=== PATIENT | male | born 1955 | race Caucasian/White ===

== ENCOUNTER 2025-02-03 11:47 | Inpatient (IN) | payer MEDICARE ==
[~2025-02-03] VITALS: Ht 198.1 cm; Wt 83.5 kg
[2025-02-03 12:39] LABS: PLATELET COUNT (AUTO) 141 K/uL (150-450); RED BLOOD CELL COUNT(AUTO) 3.95 MIL/uL (4.5-6.0); RED CELL DISTRIBUTION WIDTH 13.2 % (11.5-15.0); WHITE BLOOD COUNT (AUTO) 6.8 K/uL (4.3-11.0)
[2025-02-03 12:52] LABS: INR 1.05 (0.91-1.10)
[2025-02-03] MEDS: IV NS 0.9% 1,000 ML BAG IV ONE (12:54)
[2025-02-03 12:58] LABS: LACTIC ACID 2.2 mmol/L (0.4-2.0)
[2025-02-03 13:02] LABS: CALCIUM, SERUM 8.8 mg/dL (8.5-10.1); CREATININE 1.2 mg/dL (0.6-1.3); SODIUM SERUM 136 mmol/L (136-145); UREA NITROGEN, BLOOD 26 mg/dL (7-18)
[2025-02-03 13:06] LABS: ASPARTATE AMINOTRANSFERASE 10 U/L (15-37); TOTAL PROTEIN, SERUM 6.3 g/dL (6.4-8.2)
[2025-02-03] MEDS ORDERED: DUTA0.5C37 PO (13:20)
[2025-02-03] MEDS ORDERED: QUET300T2 PO (13:20)
[2025-02-03] MEDS ORDERED: DIVA-78 PO (13:20)
[2025-02-03] MEDS ORDERED: RAMI10CA69 PO (13:20)
[2025-02-03] MEDS ORDERED: TRAZ-257 PO (13:20)
[2025-02-03] MEDS ORDERED: ASPIRIN 81 MG TAB.CHEW ONE (13:35)
[2025-02-03] MEDS ORDERED: ENOXAPARIN SODIUM 80 MG/0.8 ML DISP.SYRIN SQ ONE (13:35)
[2025-02-03] MEDS: ASPIRIN 81 MG TAB.CHEW PO ONE (13:40)
[2025-02-03] MEDS: ENOXAPARIN SODIUM 80 MG/0.8 ML DISP.SYRIN SQ SCH (15:00)
[2025-02-03 15:29] LABS: APPEARANCE,URINE CLEAR (CLEAR); BLOOD, URINE NEGATIVE Ery/uL (NEGATIVE); LEUKOCYTE ESTERASE ,URINE NEGATIVE (NEGATIVE); NITRITE, URINE NEGATIVE (NEGATIVE); UGLUCOSE 3+ mg/dL (NEGATIVE)
[2025-02-03 15:54] LABS: SQUAMOUS EPITHELIAL CELL,UR Rare /HPF (None Seen)
[2025-02-03 15:55] LABS: ADD URINE CULTURE NO
[2025-02-03 16:00] VITALS: BP 147/83; TEMP 97.2; O2SAT 98
[2025-02-03] MEDS ORDERED: ONDANSETRON HCL/PF 4 MG/2 ML VIAL IVP PRN (16:00)
[2025-02-03] MEDS ORDERED: MAGNESIUM HYDROXIDE 30 ML UDC PO PRN (16:00)
[2025-02-03] MEDS ORDERED: MORPHINE SULFATE INJ 2 MG/ML DISP.SYRIN IV PRN (16:00)
[2025-02-03] MEDS ORDERED: Z GUARD REMEDY 4 OZ OINT TP PRN (16:00)
[2025-02-03] MEDS ORDERED: MAG HYDROX/AL HYDROX/SIMETH 30 ML UDC PO PRN (16:00)
[2025-02-03] MEDS ORDERED: NITROGLYCERIN 0.4 MG/TAB BOTTLE SL PRN (16:00)
[2025-02-03] MEDS ORDERED: ACETAMINOPHEN 325 MG TABLET PO PRN (16:00)
[2025-02-03 16:53] LABS: SERUM AMMONIA 39 umol/L (11-32)
[2025-02-03] MEDS: METOPROLOL TARTRATE 25 MG TABLET PO SCH (18:24)
[2025-02-03 20:00] VITALS: BP 118/62; TEMP 97.9; O2SAT 98
[2025-02-03 20:04] LABS: LDL 94.0 mg/dL (0-99)
[2025-02-04] VITALS (9 sets, daily range): BP systolic 117–159; BP diastolic 74–96; TEMP 97.5–97.9; O2SAT 96–98
[2025-02-04] MEDS: ZOLPIDEM TARTRATE 5 MG TABLET PO PRN (02:19)
[2025-02-04 06:05] LABS: PLATELET COUNT (AUTO) 169 K/uL (150-450); RED BLOOD CELL COUNT(AUTO) 4.00 MIL/uL (4.5-6.0); RED CELL DISTRIBUTION WIDTH 13.1 % (11.5-15.0); WHITE BLOOD COUNT (AUTO) 4.7 K/uL (4.3-11.0)
[2025-02-04 06:17] LABS: CALCIUM, SERUM 8.5 mg/dL (8.5-10.1); CREATININE 1.0 mg/dL (0.6-1.3); PHOSPHORUS 2.0 mg/dL (2.5-4.9); SODIUM SERUM 138.0 mmol/L (136-145); UREA NITROGEN, BLOOD 23.0 mg/dL (7-18)
[2025-02-04] MEDS: PANTOPRAZOLE 40 MG TABLET.DR PO SCH (07:43)
[2025-02-04] MEDS ORDERED: ASPIRIN EC 81 MG TABLET.DR PO SCH (09:00)
[2025-02-04] MEDS: ASPIRIN EC 325 MG TABLET.DR PO SCH (09:06)
[2025-02-04] MEDS ORDERED: IOHEXOL-350 100 ML VIAL IV ONE (10:32)
[2025-02-04] MEDS ORDERED: IV NS 0.9% 250 ML IV ONE (10:33)
[2025-02-04] MEDS: METOPROLOL TARTRATE INJ 5 MG/5 ML AMPUL IVP PRN (10:50)
[2025-02-04] MEDS: NITROGLYCERIN 0.4 MG/TAB BOTTLE SL ONE (10:56)
[2025-02-04] MEDS ORDERED: NITROGLYCERIN 0.4 MG/TAB BOTTLE ONE (10:57)
[2025-02-04] MEDS ORDERED: METOPROLOL TARTRATE INJ 5 MG/5 ML AMPUL ONE (10:57)
[2025-02-04] MEDS ORDERED: ASPI-1100 PO (11:12)
[2025-02-04] MEDS ORDERED: ATOR40TA PO (11:12)
[2025-02-04] MEDS ORDERED: METO25TA20 PO (11:12)
[2025-02-04] MEDS: ATORVASTATIN 40 MG TABLET PO SCH (12:48)
[2025-02-04] MEDS ORDERED: DUTASTERIDE (0.5 MG) 0.5 MG CAPSULE PO SCH (14:00)
[2025-02-04] MEDS: DIVALPROEX SODIUM 500 MG TABLET.DR PO SCH (15:20)
[2025-02-04] MEDS: K PHOS NEUTRAL 250 MG TABLET PO ONE (17:48)
[2025-02-04] MEDS: TRAZODONE 50 MG TABLET PO SCH (21:16)
[2025-02-04] MEDS: QUETIAPINE FUMARATE 100 MG TABLET PO PRN (21:48)
[2025-02-05] MEDS ORDERED: hydrALAZINE HCL IV 20 MG VIAL IV PRN ×2 (02:30→03:00)
[2025-02-05] MEDS: RAMIPRIL 5 MG CAPSULE PO ONE (02:45)
[2025-02-05] MEDS: LISINOPRIL (10MG) 10 MG TABLET PO ONE (03:30)
[2025-02-05 04:00] VITALS: BP 149/68; TEMP 98.2; O2SAT 97
[2025-02-05 06:43] LABS: CALCIUM, SERUM 8.6 mg/dL (8.5-10.1); CREATININE 1.0 mg/dL (0.6-1.3); PHOSPHORUS 3.7 mg/dL (2.5-4.9); SODIUM SERUM 142.0 mmol/L (136-145); UREA NITROGEN, BLOOD 21.0 mg/dL (7-18)
[2025-02-05 09:01] VITALS: BP 134/81; TEMP 97.7; O2SAT 94
[2025-02-05 10:00] VITALS: BP 134/81; TEMP 97.7; O2SAT 94
[2025-02-05 16:52] VITALS: BP 130/82; TEMP 97.8; O2SAT 95
[2025-02-05] MEDS: ONDANSETRON 4 MG TAB.RAPDIS PO ONE (17:21)
[2025-02-05] MEDS: LOPERAMIDE HCL (2 MG CAP) 2 MG CAPSULE PO PRN (17:31)
[2025-02-05 20:00] VITALS: BP 126/70; TEMP 97.5; O2SAT 98
[2025-02-05] MEDS: DIVALPROEX SODIUM 500 MG TABLET.DR PO SCH (21:22)
[2025-02-06 08:23] LABS: CALCIUM, SERUM 9.2 mg/dL (8.5-10.1); CREATININE 1.0 mg/dL (0.6-1.3); SODIUM SERUM 142.0 mmol/L (136-145); UREA NITROGEN, BLOOD 22.0 mg/dL (7-18)
[2025-02-06 09:04] VITALS: BP 138/71; TEMP 97.3; O2SAT 92
[2025-02-06] MEDS: ONDANSETRON 4 MG TAB.RAPDIS SL PRN (09:39)
[2025-02-06] MEDS ORDERED: PROCHLORPERAZINE EDISYLATE 10 MG/2 ML VIAL IM PRN (17:00)
[2025-02-06] MEDS ORDERED: IV D5/ 0.9% NACL 1,000 ML IV ONE (17:00)
[2025-02-06 18:05] LABS: PLATELET COUNT (AUTO) 191 K/uL (150-450); RED BLOOD CELL COUNT(AUTO) 4.16 MIL/uL (4.5-6.0); RED CELL DISTRIBUTION WIDTH 13.4 % (11.5-15.0); WHITE BLOOD COUNT (AUTO) 5.1 K/uL (4.3-11.0)
[2025-02-06 18:19] LABS: ASPARTATE AMINOTRANSFERASE 19.0 U/L (15-37); CALCIUM, SERUM 8.9 mg/dL (8.5-10.1); CREATININE 1.1 mg/dL (0.6-1.3); SODIUM SERUM 139.0 mmol/L (136-145); TOTAL PROTEIN, SERUM 6.4 g/dL (6.4-8.2); UREA NITROGEN, BLOOD 20.0 mg/dL (7-18)
[2025-02-06] MEDS: METOCLOPRAMIDE HCL 10 MG/2 ML VIAL IV SCH (19:13)
[2025-02-06] MEDS: LORAZEPAM INJ 2 MG/ML VIAL IV PRN (19:13)
[2025-02-06] MEDS: PROCHLORPERAZINE MALEATE 10 MG TABLET PO PRN (19:15)
[2025-02-06 20:49] VITALS: BP 146/90; TEMP 97.3; O2SAT 98
[2025-02-07 04:53] VITALS: BP 146/90; TEMP 97.7; O2SAT 98
[2025-02-07 06:24] LABS: CALCIUM, SERUM 8.8 mg/dL (8.5-10.1); CREATININE 1.0 mg/dL (0.6-1.3); SODIUM SERUM 141.0 mmol/L (136-145); UREA NITROGEN, BLOOD 18.0 mg/dL (7-18)
[2025-02-07 08:18] VITALS: BP 160/90
[2025-02-07] MEDS: METOCLOPRAMIDE HCL 10 MG TABLET PO PRN (10:18)
== END 2025-02-07 11:06 | disposition home or self-care (01) | DRG 282 ==
LOC: ER 11:57 → TELE 15:00
DX: I21.4 Non-ST elevation (NSTEMI) myocardial infarction (principal); E11.65 Type 2 diabetes mellitus with hyperglycemia; D69.6 Thrombocytopenia, unspecified; F41.9 Anxiety disorder, unspecified; F32.A Depression, unspecified; I25.10 Atherosclerotic heart disease of native coronary artery without angina pectoris; R53.1 Weakness; Z20.822 Contact with and (suspected) exposure to COVID-19; I10 Essential (primary) hypertension
CPT/HCPCS: 36415; 71045-TC; 75574; 80048-TC; 80053-TC; 80061-TC; 80076-TC; 81001; 82140-TC; 82962-TC; 83605-TC; 83690-TC; 83735-TC; 84100-TC; 84443-TC; 84484-TC; 85025-TC; 85730-TC; 87040-TC; 87081-TC; 93307-TC; A4223; A6403; G0378; J0780; J1650; J2060; J2765; J3490; J7030; J7050; J8597; Q0162; Q0164; Q9967